=== PATIENT | male | born 1970 | race Caucasian/White ===

== ENCOUNTER 2016-10-25 10:48 | Inpatient (IN) | payer OTHER ==
[~2016-10-25] VITALS: Ht 190.5 cm; Wt 129.7 kg
[~2016-10-25 10:48] MED LIST: DIOVAN320 MG PO; HYDRODIURIL25 MG PO; Lopressor25 MG PO
[2016-10-25 11:01] VITALS: BP 141/78
[2016-10-25 11:09] LABS: BASO % 0.3 % (0.0-1.0); EOS # 0.1 10*3/uL (0.0-0.4); EOS % 1.6 % (1.0-4.0); HEMATOCRIT 47.4 % (42.0-52.0); IG # 0.1 10*3/uL (0.0-0.1); LYMPH % 22.4 % (27.0-41.0); MEAN CELL VOLUME 86.3 fl (80.0-94.0); MEAN CORPUSCULAR HGB 29.1 pg (27.0-31.0); MEAN CORPUSCULAR HGB CONC 33.8 g/dl (33.0-37.0); MEAN PLATELET VOLUME 10.9 fl (9.6-12.3); MONO # 0.6 10*3/uL (0.1-1.0); MONO % 6.8 % (3.0-9.0); NEUT # 6.1 10*3/uL (2.3-7.9); NEUT % 68.3 % (47.0-73.0); PLATELET COUNT AUTOMATED 207 10*3/uL (130-400); RED BLOOD COUNT 5.49 10*6/uL (4.50-5.90); RED CELL DISTRI WIDTH 12.8 % (0-14.5)
[2016-10-25 11:18] LABS: PROTHROMBIN TIME 10.7 SECONDS (9.0-12.4)
[2016-10-25 11:26] LABS: ALBUMIN 3.5 gm/dl (3.1-4.5); ALKALINE PHOSPHATASE 67 U/L (45-117); BILIRUBIN, TOTAL 0.4 mg/dl (0.2-1.0); BUN 6 mg/dl (7-24); CARBON DIOXIDE 26 mmol/L (21-32); CHLORIDE 106 mmol/L (98-107); EST GLOM FILT AFRICAN AMERICAN > 60 ml/min; GLUCOSE 106 mg/dL (65-99); MAGNESIUM 2.2 mg/dL (1.5-2.1); SGOT/AST 29 IU/L (3-35); SGPT/ALT 49 U/L (12-78); SODIUM 143 mmol/L (136-145); TOTAL PROTEIN 7.2 gm/dL (6.4-8.2)
[2016-10-25 11:34] LABS: TROPONIN I < 0.015 ng/ml (<0.045)
[2016-10-25 11:35] VITALS: BP 122/70
[2016-10-25 12:24] LABS: BILIRUBIN NEGATIVE (NEGATIVE); BLOOD TRACE-INTACT (NEGATIVE); CLARITY CLEAR (CLEAR); COLOR YELLOW (YELLOW); GLUCOSE NEGATIVE (NEGATIVE); KETONE NEGATIVE (NEGATIVE); LEUKO ESTERASE NEGATIVE (NEGATIVE); NITRITE NEGATIVE (NEGATIVE); PH 5.5 (5.0-9.0); PROTEIN NEGATIVE (NEGATIVE); SPECIFIC GRAVITY 1.025 (1.005-1.030); UROBILINOGEN 0.2 E.U./dl (0.2-1.0)
[2016-10-25 12:33] LABS: RBC 0-2 rbc/hpf (0-2); URINE REFLEX COMMENT NO (NO); WBC 0-2 wbc/hpf (0-5)
[2016-10-25] MEDS ORDERED: LOPRESSOR50 M1 PO (12:41)
[2016-10-25] MEDS ORDERED: LOSARTAN POTASS1 TA4 PO (12:42)
[2016-10-25 13:10] VITALS: BP 126/74
[2016-10-25 14:00] VITALS: BP 132/81
[2016-10-25 16:00] VITALS: BP 120/69
[2016-10-25 20:00] VITALS: BP 124/72
[2016-10-26] VITALS: BP 121/61
[2016-10-26 07:18] LABS: BASO % 0.5 % (0.0-1.0); EOS # 0.1 10*3/uL (0.0-0.4); EOS % 1.8 % (1.0-4.0); HEMATOCRIT 49.6 % (42.0-52.0); HEMOGLOBIN 16.8 g/dl (14.0-18.0); LYMPH # 1.8 10*3/uL (1.3-4.4); LYMPH % 23.3 % (27.0-41.0); MEAN CELL VOLUME 86.9 fl (80.0-94.0); MEAN CORPUSCULAR HGB 29.4 pg (27.0-31.0); MEAN CORPUSCULAR HGB CONC 33.9 g/dl (33.0-37.0); MEAN PLATELET VOLUME 11.1 fl (9.6-12.3); MONO # 0.5 10*3/uL (0.1-1.0); MONO % 6.6 % (3.0-9.0); NEUT # 5.3 10*3/uL (2.3-7.9); NEUT % 67.3 % (47.0-73.0); PLATELET COUNT AUTOMATED 204 10*3/uL (130-400); RED BLOOD COUNT 5.71 10*6/uL (4.50-5.90); RED CELL DISTRI WIDTH 12.8 % (0-14.5); WHITE BLOOD COUNT 7.9 10*3/uL (4.8-10.8)
[2016-10-26 07:40] LABS: BUN 6 mg/dl (7-24); CARBON DIOXIDE 26 mmol/L (21-32); CHLORIDE 106 mmol/L (98-107); CHOLESTEROL 150 mg/dL (<200); EST GLOM FILT AFRICAN AMERICAN > 60 ml/min; FREE T4 0.97 ng/dl (0.76-1.46); GLUCOSE 91 mg/dL (65-99); MAGNESIUM 2.4 mg/dL (1.5-2.1); PHOSPHOROUS 2.2 mg/dL (2.5-4.9); POTASSIUM 4.2 mmol/L (3.5-5.1); SODIUM 140 mmol/L (136-145); TRIGLYCERIDES 146 mg/dl (<150); VLDL CHOLESTEROL 29 mg/dL (6-40)
[2016-10-26 07:42] LABS: HEMOGLOBIN A1c 5.5 % (4.8-5.6)
[2016-10-26 07:47] LABS: HDL CHOLESTEROL 47 mg/dl (40-60); LDL CHOLESTEROL 74 mg/dL (9-159)
[2016-10-26 08:00] VITALS: BP 133/75
[2016-10-26 08:43] LABS: VITAMIN D, 25-HYDROXY 20.1 ng/mL (30-100)
[2016-10-26] MEDS ORDERED: LOPRESSOR25 MG PO (09:40)
[2016-10-26] MEDS ORDERED: LOSARTAN POTASS1 TA4 PO (09:40)
[2016-10-26] MEDS ORDERED: VITAMIN D1000 IU PO (09:41)
== END 2016-10-26 10:38 | disposition home or self-care (01) | DRG 392 ==
LOC: ED 10:48 → EDHOLD 13:25 → 5E 13:25
PROVIDERS: Emergency Medicine; Internal Medicine; Physician Assistant
DX: K21.9 Gastro-esophageal reflux disease without esophagitis (principal); E83.41 Hypermagnesemia; I10 Essential (primary) hypertension; R07.89 Other chest pain; E86.0 Dehydration; R73.9 Hyperglycemia, unspecified; H53.8 Other visual disturbances; E66.9 Obesity, unspecified; E83.39 Other disorders of phosphorus metabolism; R31.29 Other microscopic hematuria; Z83.6 Family history of other diseases of the respiratory system; Z84.89 Family history of other specified conditions; Z88.0 Allergy status to penicillin; Z88.8 Allergy status to other drugs, medicaments and biological substances; Z79.899 Other long term (current) drug therapy; Z68.35 Body mass index [BMI] 35.0-35.9, adult